=== PATIENT | female | born 1995 | race Caucasian/White ===

== ENCOUNTER 2020-03-16 14:23 | Emergency (ER) | payer SELFPAY ==
[2020-03-16 14:31] VITALS: BP 142/70; PULSE 100; RESP 20; TEMP 37.2; O2SAT 98; BMI 25.7
--- NOTE | 2020-03-16 14:31 | DI.RAD.S_ITS ---
PROCEDURE: XR KNEE LT 3V INDICATIONS: GLF with L knee pain TECHNIQUE: 3 views of the knee were acquired. COMPARISON: None. FINDINGS: Bones: No fractures or dislocations. No suspicious bony lesions. Soft tissues: There is a moderate-sized joint effusion. No suspicious soft tissue calcifications. IMPRESSION: 1. No fracture or dislocation. 2. Moderate-sized joint effusion. Dictated by: Serjio Handley M.D. on 03/16/2020 at 15:12 Approved by: Serjio Handley M.D. on 03/16/2020 at 15:13
--- NOTE | 2020-03-16 15:22 | ED_ITS ---
HPI - Extremity Injury (Lower) <Lynn Mo PA-C - Last Filed: 03/16/20 23:04> General Chief Complaint: Extremity Injury, Lower Stated Complaint: injured left knee Time Seen by Provider: 03/16/20 14:57 Source: patient Mode of arrival: Wheelchair Limitations: no limitations History of Present Illness HPI Narrative: This is a previously healthy 24-year-old female who presents to the emergency department after sustaining a fall and a left knee injury yesterday. She says that she was walking out of a building and she tripped on something on the sidewalk and fell directly onto her left knee to a height of about 1 ft below where she was standing, landing on the front of her left leg just below her knee, she had significant pain afterwards and had a lot of difficulty getting up but she was able to hobble the rest of the day, and has been using crutches this morning; she has taken ibuprofen for pain with relief and has also been icing and elevating her left knee. She says that she has pain that is sharp and a little bit shooting that is radiating down the outside of her leg from her knee, and she also has some pain on the inside of her knee on the front. She says she has never injured her knee before and has never had any knee surgeries. Since this morning she feels like she has basically been unable to bear weight on it because she has a lot of pain when she does so. She denies numbness, tingling, weakness, or any other symptoms. This is an isolated injury and she has no other complaints. MD complaint: knee injury Onset (ago): day(s) (1) Injury: Left: knee Type of Injury: blunt (fall onto knee) Severity: moderate Severity scale (1-10): 3 Relieving factors: cold therapy, immobilization and rest Exacerbating factors: weight bearing Context: fall Associated symptoms: able to partially bear weight Other symptoms: none Treatments prior to arrival: cold therapy Review of Systems <Lynn Mo PA-C - Last Filed: 03/16/20 23:04> Review of Systems Narrative: GENERAL: Denies chills, fatigue, malaise, fever, sweats. HEENT: Denies sinus pain, ear pain, sore throat, difficulty swallowing, dizziness. RESPIRATORY: Denies dyspnea, cough, wheezing, hemoptysis, sputum. CARDIOVASCULAR: Denies chest pain, palpitations, orthopnea, edema, GASTROINTESTINAL: Denies nausea, vomiting, abdominal pain, diarrhea, constipation, melena. : Denies dysuria, frequency, incontinence, hematuria, urinary retention. MUSCULOSKELETAL: Positive for left knee pain, denies weakness, other joint pain, or bony pain SKIN: Denies rash, skin lesions, or other NEUROLOGIC: Denies weakness, headache, numbness, change in speech, confusion, seizures, incoordination. PSYCHIATRIC: No concerning psychosocial issues. 12 point review of systems is negative except for those stated above Patient History <Lynn Mo PA-C - Last Filed: 03/16/20 23:04> Social History Smoking Status: Never smoker Smoking Status: Never smoker Substance Use Type: marijuana Exam <Lynn Mo PA-C - Last Filed: 03/16/20 23:04> Narrative Exam Narrative: GENERAL: 24 year old patient appears stated age. Well-nourished, well-developed patient, in mild distress. HEAD: Atraumatic. Normocephalic. EYES: Pupils equal round and reactive. Extraocular motions intact. No scleral icterus. No injection or drainage. ENT: Nose without bleeding, purulent drainage. Throat without erythema, tonsillar hypertrophy or exudate. Airway patent. NECK: Trachea midline. Non tender CARDIOVASCULAR: Regular rate and rhythm without murmurs, gallops, or rubs. Distal pulses intactx4 2+ RESPIRATORY: Clear to auscultation. Breath sounds equal bilaterally. No wheezes, rales, or rhonchi. EXTREMITIES: No edema, there is knee joint tenderness with active ROM and weightbearing; there is mild tenderness at the medial and lateral joint line. Strength is intact 5/5 LE bilaterally. The tibia and fibula are nontender to palpation, the ankle joint has normal strength and range of motion without tenderness. BACK: Nontender without deformity or crepitance. No flank tenderness. NEURO: AOx3. sensation of affected extremity is intact SKIN: No rash or erythema of visible areas Initial Vital Signs Initial Vital Signs: Vital Signs Temperature 98.9 F 03/16/20 14:31 Pulse Rate 100 H 03/16/20 14:31 Respiratory Rate 20 03/16/20 14:31 Blood Pressure 142/70 H 03/16/20 14:31 Pulse Oximetry 98 03/16/20 14:31 <Mohan Cobian MD - Last Filed: 03/20/20 21:32> Initial Vital Signs Initial Vital Signs: Vital Signs Temperature 98.9 F 03/16/20 14:31 Pulse Rate 100 H 03/16/20 14:31 Respiratory Rate 20 03/16/20 14:31 Blood Pressure 142/70 H 03/16/20 14:31 Pulse Oximetry 98 03/16/20 14:31 Course <Lynn Mo PA-C - Last Filed: 03/16/20 23:04> Orders Ordered: ED Orders 03/16/20 14:31 XR knee LT 3V Stat Vital Signs Vital signs: Vital Signs - 8 hr 03/16/20 15:47 Pulse Rate 87 Respiratory Rate 18 Blood Pressure [Right Arm] 128/74 Pulse Oximetry 98 <Mohan Cobian MD - Last Filed: 03/20/20 21:32> Orders Ordered: ED Orders 03/16/20 14:31 XR knee LT 3V Stat Vital Signs Vital signs: Vital Signs - 8 hr 03/16/20 15:47 Pulse Rate 87 Respiratory Rate 18 Blood Pressure [Right Arm] 128/74 Pulse Oximetry 98 MDM - Extremity Injury (Lower) <Lynn Mo PA-C - Last Filed: 03/16/20 23:04> Differential Diagnosis Differential diagnosis: Likely other (knee strain/sprain) Medical Records Attestation: I reviewed the patient's medical records. Imaging Data Extremity x-ray #1: Attestation: I personally reviewed and interpreted this imaging study as follows: Radiologist's Impression: [address] [address] XRay Report Signed Patient: Alyssa Reid EMR#: [id number] : 1995Acct:[id number] Age/Sex: 24 / FDate of Service: 03/16/20 Loc: ED Accession Number: [id number] Procedure: XR knee LT 3V Ordering Provider: Mohan Cobian MD PROCEDURE: XR KNEE LT 3V INDICATIONS: GLF with L knee pain TECHNIQUE: 3 views of the knee were acquired. COMPARISON: None. FINDINGS: Bones: No fractures or dislocations. No suspicious bony lesions. Soft tissues: There is a moderate-sized joint effusion. No suspicious soft tissue calcifications. IMPRESSION: 1. No fracture or dislocation. 2. Moderate-sized joint effusion. Dictated by: Serjio Handley M.D. on 03/16/2020 at 15:12 Approved by: Serjio Handley M.D. on 03/16/2020 at 15:13 [facility] Narrative Medical decision making narrative: This is a 24 old woman who presents with left knee pain following a fall onto her knee, she has had difficulty with weight- bearing since this occurred, and increasing the pain. Differential diagnoses that were considered include ligament or tendon damage to medial and lateral collateral ligaments ACL, PCL, meniscal tear, tibial plateau fracture, patellar tendon damage, patellar fracture. Given the mechanism of injury tibial plateau fracture seems unlikely, however it is possible given that she describes a shooting pain sensation consistent with bone fx pain; I suspect is more likely she may have sustained meniscal damage. Patient's pain is most significant when she is standing and weight-bearing, x- rays are significant for a moderate knee effusion. Given the presence of the knee effusion she was advised to follow up with Orthopedics, provided with a knee brace, and crutches and advised to stay off of her leg, as well as given instructions regarding rest ice compression elevation as well as alternating Tylenol and ibuprofen for pain as needed. She was provided with emergency return precautions and all questions were answered. Discharge Plan Departure Patient Disposition: Home Clinical Impression: Effusion of knee joint, left Acute knee pain Qualifiers: Laterality: left Qualified Code(s): M25.562 - Pain in left knee Discharge Date/Time: 03/16/20 15:57 Instructions: DI for Knee Sprain, DI for Knee Pain Activity Restrictions/Additional Instructions: Thank you for allowing us to be part of your care in the emergency department today. There is no evidence of an emergent or life threatening illness at this time, but follow up with an orthopedic doctor in 1-3 days is recommended nonetheless to continue to rule out serious underlying causes of your symptoms. Please call the office for an appointment. Please return to the Emergency Department for any worsening or persistent symptoms. You can alternate Tylenol and ibuprofen for pain, I also recommend continuing to ice your knee as well as doing a compression wrap with an Rocael bandage and wearing the knee brace whenever you are up and about as well as using crutches, it is very important to stay off of your knee until you are evaluated further by Orthopedics. Because you have an effusion in your knee which is a collection of fluid due to the trauma that your knee sustained, there is a possibility that you have damage to your meniscus in your knee joint, a ligament, or damage to your bone even though we do not see these things on x-ray today. This is why it is important to follow- up with an data storage specialist and to stay off of your leg as much as possible. Referrals: Sarah Roland MD [Physician] - (Trauma fall/L knee effusion--concern for meniscal tear)
[2020-03-16 15:47] VITALS: BP 128/74; PULSE 87; RESP 18; O2SAT 98
== END 2020-03-16 15:57 | disposition home or self-care (01) ==
PROVIDERS: Emergency Provider Student in an Organized Health Care Education/Training Program
DX: M25.562 Pain in left knee (principal); M25.462 Effusion, left knee; W01.0XXA Fall on same level from slipping, tripping and stumbling without subsequent striking against object, initial encounter
CPT/HCPCS: 73562; 99283